=== PATIENT | female | born 1965 | race Caucasian/White ===

== ENCOUNTER 2018-07-02 12:05 | Outpatient (CLI) | payer OTHER | END 2018-07-02 12:26 | disposition home or self-care (01) | LOC: MAMO-SONO 12:05 | DX: Z12.31 Encounter for screening mammogram for malignant neoplasm of breast (principal); N64.4 Mastodynia; N60.11 Diffuse cystic mastopathy of right breast; N60.12 Diffuse cystic mastopathy of left breast ==

== ENCOUNTER 2020-07-19 08:03 | Outpatient (CLI) | payer OTHER | END 2020-07-19 08:17 | disposition home or self-care (01) | LOC: TOM 08:03 | PROVIDERS: ATTEND Obstetrics & Gynecology Maternal & Fetal Medicine | DX: D17.71 Benign lipomatous neoplasm of kidney (principal) ==

== ENCOUNTER 2020-07-25 11:23 | Outpatient (CLI) | payer OTHER | END 2020-07-25 11:39 | disposition home or self-care (01) | LOC: MAMO-SONO 11:23 | PROVIDERS: ATTEND Obstetrics & Gynecology Maternal & Fetal Medicine | DX: Z12.31 Encounter for screening mammogram for malignant neoplasm of breast (principal); N64.4 Mastodynia; N60.11 Diffuse cystic mastopathy of right breast; N63.10 Unspecified lump in the right breast, unspecified quadrant; N63.20 Unspecified lump in the left breast, unspecified quadrant ==

== ENCOUNTER 2021-07-31 12:12 | Outpatient (CLI) | payer OTHER | END 2021-07-31 12:31 | disposition home or self-care (01) | LOC: MAMO-SONO 12:12 | PROVIDERS: ATTEND Obstetrics & Gynecology | DX: N60.11 Diffuse cystic mastopathy of right breast (principal); N60.12 Diffuse cystic mastopathy of left breast; Z12.31 Encounter for screening mammogram for malignant neoplasm of breast; N64.89 Other specified disorders of breast ==

== ENCOUNTER 2022-12-16 08:40 | Outpatient (CLI) | payer OTHER | END 2022-12-16 08:54 | disposition home or self-care (01) | LOC: TOM 08:40 | PROVIDERS: ATTEND Obstetrics & Gynecology Maternal & Fetal Medicine | DX: Z12.31 Encounter for screening mammogram for malignant neoplasm of breast (principal); N63.0 Unspecified lump in unspecified breast; N64.4 Mastodynia; N60.11 Diffuse cystic mastopathy of right breast; R10.32 Left lower quadrant pain; K57.92 Diverticulitis of intestine, part unspecified, without perforation or abscess without bleeding ==

== ENCOUNTER 2024-11-30 11:25 | Outpatient (CLI) | payer OTHER | END 2024-11-30 11:35 | disposition home or self-care (01) | LOC: MAMO-SONO 11:25 | DX: N60.11 Diffuse cystic mastopathy of right breast (principal); N60.12 Diffuse cystic mastopathy of left breast; Z12.31 Encounter for screening mammogram for malignant neoplasm of breast ==